=== PATIENT | female | born 1990 | race Caucasian/White ===

== ENCOUNTER → 2022-03-12 16:58 | Outpatient (CLI) | payer OTHER, SELFPAY ==
--- NOTE | 2022-03-12 17:15 | XR_ITS ---
PROCEDURE INFORMATION: Exam: XR Chest Exam date and time: 03/12/2022 5:15 PM Age: 31 years old Clinical indication: Cough and fever and shortness of breath; Additional info: Cough, fever, SOB TECHNIQUE: Imaging protocol: Radiologic exam of the chest. Views: 1 view. COMPARISON: No relevant prior studies available. FINDINGS: Lungs: Dense consolidation involving 9 cm area left mid and upper chest consistent with pneumonia. Follow-up after therapy documented to confirm clearance. Pleural spaces: Unremarkable. No pleural effusion. No pneumothorax. Heart/Mediastinum: Unremarkable. No cardiomegaly. Bones/joints: Unremarkable. IMPRESSION: Dense consolidation involving 9 cm area left mid and upper chest consistent with pneumonia. Follow-up after therapy documented to confirm clearance.
[2022-03-12 17:29] LABS: Basophils # 0.2 K/mm3 (0-0.2); Basophils % 1.6 % (0.1-2.0); Eosinophils # 0.1 K/mm3 (0.0-0.4); Eosinophils % 0.6 % (0.1-12.0); Hematocrit 46.4 % (37.0-47.0); Lymphocytes # 1.2 K/mm3 (0.7-4.5); Lymphocytes % 12.1 % (10-50); Mean Corpuscular HGB Conc 30.1 g/dL (31.8-35.4); Mean Corpuscular Hemoglobin 30.7 pg (27.0-31.2); Mean Corpuscular Volume 101.9 fl (81-99); Mean Platelet Volume 9.9 fl (7.4-10.4); Monocytes # 0.4 K/mm3 (0.1-1.0); Monocytes % 3.4 % (1.7-9.3); Neutrophils # 8.3 K/mm3 (1.8-7.8); Neutrophils % 82.2 % (37.0-80.0); Platelet Count 205 K/mm3 (142-424); Red Blood Count 4.55 M/mm3 (4.20-5.40); Red Cell Distribution Width 13.5 % (11.5-17.5)
== END ==
PROVIDERS: PCP Family Medicine; Visit Provider Family Medicine
DX: R06.02 Shortness of breath (principal); R50.9 Fever, unspecified; R05.9 Cough, unspecified
CPT/HCPCS: 36415; 71045; 85025

== ENCOUNTER → 2022-03-21 11:51 | Outpatient (CLI) | payer OTHER, SELFPAY ==
--- NOTE | 2022-03-21 11:56 | XR_ITS ---
FINAL REPORT CLINICAL HISTORY: PNEUMONIA follow up COMPARISON: 03/12/2022 FINDINGS: SINGLE-VIEW CHEST The heart size is normal. The mediastinum is normal. The previously seen dense infiltrate in the left mid lung is no longer identified. There is scarring in the periphery of the left mid lung. There is no pneumothorax. IMPRESSION: No acute cardiopulmonary process. Reviewed, Interpreted and Dictated by Phillip Laureano MD Transcribed by Tg Mendoza Authenticated and . [facility]
== END ==
PROVIDERS: PCP Family Medicine; Visit Provider Family Medicine
DX: J18.9 Pneumonia, unspecified organism (principal)
CPT/HCPCS: 71046